=== PATIENT | female | born 1990 | race Caucasian/White ===

== ENCOUNTER 2019-08-04 11:22 | Outpatient (CLI) | payer OTHER ==
[~2019-08-04] VITALS: Ht 175.3 cm; Wt 103.6 kg
[~2019-08-04 11:22] MED LIST: ACET500T64 PO; ASPI1TAB31 PO; DOXY100T PO; FAMO-79 PO; HYDR-3240 PO; IBUP-1222 PO; METR500T PO; NO HOME MEDS; PREN1TAB56; PREN1TAB60 PO
[2019-08-04 11:37] VITALS: BP 107/61
[2019-08-04 12:14] LABS: BASOPHILS # (AUTO) 0.03 x10^3/uL (0-0.1); BASOPHILS % (AUTO) 0 % (0-1); EOSINOPHILS # (AUTO) 0.03 x10^3/uL (0-0.4); EOSINOPHILS % (AUTO) 0 % (1-7); LYMPHOCYTES % (AUTO) 21 % (22-44); MD NO; MEAN CORPUSCULAR HEMOGLOBIN 31.6 pg (27.0-34.8); MEAN CORPUSCULAR HGB CONC 33.7 g/dL (32.4-35.8); MEAN PLATELET VOLUME 8.1 fL (7.4-10.4); MONOCYTES # (AUTO) 0.82 x10^3/uL (0.2-0.8); MONOCYTES % (AUTO) 9 % (2-9); NEUTROPHILS # (AUTO) 6.41 x10^3/uL (1.8-6.8); NEUTROPHILS % (AUTO) 70 % (42-75); PLATELET COUNT 256 x10^3/uL (130-400); RED BLOOD COUNT 3.77 x10^6/uL (3.82-5.3); RED CELL DISTRIBUTION WIDTH 12.6 % (9.6-15.2)
[2019-08-04 12:18] LABS: MICROSCOPIC NOT IND
[2019-08-04 12:27] LABS: ALBUMIN 2.5 g/dL (3.4-5.0); ANION GAP 10 mmol/L (5-15); CALCIUM 8.2 mg/dL (8.5-10.1); CHLORIDE 106 mmol/L (98-107)
[2019-08-04 12:31] LABS: ALANINE AMINOTRANSFERASE 18 U/L (12-78); ALKALINE PHOSPHATASE 61 U/L (45-117); BILIRUBIN, DIRECT 0.1 mg/dL (0.1-0.2); BILIRUBIN,TOTAL 0.3 mg/dL (0.2-1.0); CREATININE 0.57 mg/dL (0.55-1.02); TOTAL PROTEIN 6.6 g/dL (6.4-8.2)
== END 2019-08-04 13:45 | disposition home or self-care (01) ==
LOC: LDOP 11:22
PROVIDERS: ATTEND Obstetrics & Gynecology
DX: O13.3 Gestational [pregnancy-induced] hypertension without significant proteinuria, third trimester (principal); O26.613 Liver and biliary tract disorders in pregnancy, third trimester; O26.893 Other specified pregnancy related conditions, third trimester; K76.0 Fatty (change of) liver, not elsewhere classified; R10.9 Unspecified abdominal pain; R16.0 Hepatomegaly, not elsewhere classified; Z3A.30 30 weeks gestation of pregnancy
CPT/HCPCS: 36415; 59025; 76705; 80053; 81003; 82248; 82570; 84156; 84550; 85025; 87086; 99201; G0463

== ENCOUNTER 2019-08-11 05:52 | Outpatient (CLI) | payer OTHER ==
[~2019-08-11] VITALS: Ht 175.3 cm; Wt 100.0 kg
[2019-08-11 05:59] VITALS: BP 116/66
[2019-08-11] MEDS ORDERED: DOCUSATE 100 MG CAPSULE ONE (08:12)
[2019-08-11] MEDS ORDERED: PRENATAL VIT/IRON/FA 1 EACH TABLET ONE (08:12)
== END 2019-08-11 09:31 | disposition home or self-care (01) ==
LOC: LDOP 05:52
PROVIDERS: ATTEND Obstetrics & Gynecology
DX: O36.8190 Decreased fetal movements, unspecified trimester, not applicable or unspecified (principal); Z3A.00 Weeks of gestation of pregnancy not specified
CPT/HCPCS: 59025; 76819; 99211; G0463

== ENCOUNTER 2019-09-28 21:53 | Outpatient (CLI) | payer OTHER ==
[~2019-09-28] VITALS: Ht 175.3 cm; Wt 106.0 kg
[2019-09-28 22:06] VITALS: BP 114/63
== END 2019-09-28 23:45 | disposition home or self-care (01) ==
LOC: MERGE 21:53 → LDOP 21:53
PROVIDERS: ATTEND Obstetrics & Gynecology
DX: O26.893 Other specified pregnancy related conditions, third trimester (principal); R10.9 Unspecified abdominal pain; Z3A.38 38 weeks gestation of pregnancy
CPT/HCPCS: 59025; 99211; G0463